=== PATIENT | male | born 2000 | race Caucasian/White ===

== ENCOUNTER 2022-12-25 14:01 | Emergency (ER) | payer MEDICAID, OTHER ==
[~2022-12-25] VITALS: Ht 170.2 cm; Wt 55.9 kg
[2022-12-25 14:29] VITALS: BP 103/70
[2022-12-25] MEDS ORDERED: NAPR-681 MT (16:25)
== END 2022-12-25 16:32 | disposition home or self-care (01) ==
LOC: ER 14:01
DX: S93.401A Sprain of unspecified ligament of right ankle, initial encounter (principal); X50.1XXA Overexertion from prolonged static or awkward postures, initial encounter; Y93.51 Activity, roller skating (inline) and skateboarding; Y92.89 Other specified places as the place of occurrence of the external cause; Y99.8 Other external cause status
CPT/HCPCS: 73590; 73610; 73620; 99284; Z7610

== ENCOUNTER 2023-01-26 10:31 | Emergency (ER) | payer MEDICAID ==
[~2023-01-26] VITALS: Ht 170.2 cm; Wt 53.0 kg
[~2023-01-26 10:31] MED LIST: NAPR-681 MT
[2023-01-26 10:37] VITALS: O2SAT 100
[2023-01-26] MEDS ORDERED: LIDOCAINE HCL 1% 20ML VIAL (Pyxis) INJ INFIL ONE (12:30)
[2023-01-26] MEDS ORDERED: TOPUD MT (13:49)
[2023-01-26] MEDS ORDERED: IBUP-1523 MT (13:49)
[2023-01-26] MEDS ORDERED: DICL500C MT (13:49)
[2023-01-26 14:15] VITALS: BP 131/84; PULSE 74; RESP 17; TEMP 97.9
== END 2023-01-26 14:17 | disposition home or self-care (01) ==
LOC: ER 10:31
DX: R68.89 Other general symptoms and signs (principal)
CPT/HCPCS: 10060; 99282; Z7610